=== PATIENT | male | born 2000 | race Two or more races ===

== ENCOUNTER 2024-01-23 15:09 | Emergency (ER) | payer MEDICAID ==
[~2024-01-23] VITALS: Ht 170.2 cm; Wt 59.9 kg
[2024-01-23 15:40] VITALS: BP 143/98; TEMP 98; O2SAT 98
[2024-01-23] MEDS ORDERED: AMOX-430 PO (17:02)
== END 2024-01-23 17:14 | disposition home or self-care (01) ==
LOC: ER 15:16
DX: L01.00 Impetigo, unspecified (principal)